=== PATIENT | female | born 1980 | race Caucasian/White ===

== ENCOUNTER 2017-06-06 19:44 | Emergency (ER) | payer BC ==
[2017-06-06] MEDS ORDERED: SODIUM CHLORIDE 0.9% 1000 ML INFUS.BAG IV ONE (19:54)
[2017-06-06 19:59] VITALS: BP 121/81; PULSE 88; TEMP 98.1; BMI 23.3
[2017-06-06 20:22] LABS: MCH 21.2 pg (25.7-33.7); MCHC 32.4 g/dl (32.0-36.0); MEAN CELL VOLUME 65.5 fl (80-96); MEAN PLT VOLUME 6.7 fl (7.5-11.1); PLATELET COUNT 271 K/MM3 (134-434); RDW 16.9 % (11.6-15.6)
[2017-06-06 20:28] LABS: WHITE BLOOD COUNT 35.8 K/mm3 (4.0-10.8)
[2017-06-06 20:36] LABS: ALBUMIN 3.6 g/dl (3.5-5.0); ALK PHOS 96 U/L (32-92); ANION GAP 8 (8-16); BILIRUBIN,TOTAL 0.8 mg/dl (0.2-1.0); CO2 28 mmol/L (22-28); CREATININE 0.6 mg/dl (0.6-1.3); GLUCOSE,RANDOM 150 mg/dl (74-106); SGOT/AST 20 U/L (10-42); SGPT/ALT 24 U/L (10-40); TOT PROT 6.4 g/dl (6.4-8.3)
[2017-06-06 21:15] LABS: ANISOCYTOSIS 1+; HYPOCHROMIA 2+; MICROCYTOSIS 1+; OVALOCYTES 1+; POLYCHROMASIA OCC; TEAR DROP CELLS 2+
--- NOTE | 2017-06-06 21:53 | PDOC ---
History of Present Illness - General History Source: Patient, It Director Used Exam Limitations: No Limitations - History of Present Illness Initial Comments: 06/06/17 21:54 The patient is a 36 year old female, with a significant past medical history antiphospholipid (on blood thinners), who presents to the emergency department with two days of vaginal bleeding. The patient reports that she is currently on IVF treatment, and is 7 weeks . She noted that yesterday she had some mild vaginal bleeding. Today she reports that the bleeding is very heavy and bright red. She states that she is passing large clots and passed 5-6 clots today. She reports that her current pain level is a 2/10 in severity. She denies chest pain, shortness of breath, headache and dizziness. She denies fever, chills, nausea, vomit, diarrhea and constipation. Allergies: None Social history: Never smoked IVF Physician: Dr. Galileo Scanlon [phone] <Bee Kimbrough - Last Filed: 06/06/17 21:57> <Meaghan Beard - Last Filed: 06/06/17 22:22> - General Chief Complaint: Vaginal Bleeding Stated Complaint: ,IVF BLEEDING Time Seen by Provider: 06/06/17 19:50 Past History <Bee Kimbrough - Last Filed: 06/06/17 21:57> - Past Medical History Other medical history: 7 WEEKS IVF - Psycho/Social/Smoking Cessation Hx Anxiety: No Suicidal Ideation: No Smoking History: Never smoked Have you smoked in the past 12 months: No Information on smoking cessation initiated: No Hx Alcohol Use: No Drug/Substance Use Hx: No Substance Use Type: None <Meaghan Beard - Last Filed: 06/06/17 22:22> - Past Medical History Allergies/Adverse Reactions: Allergies Allergy/AdvReac Type Severity Reaction Status Date / Time No Known Allergies Allergy Verified 06/06/17 19:47 Home Medications: Ambulatory Orders Enoxaparin Sodium [Lovenox] 40 mg SQ DAILY 06/06/17 Prednisone 60 mg PO DAILY 06/06/17 Review of Systems - Review of Systems Able to Perform ROS?: Yes Comments:: 06/06/17 21:54 GENERAL/CONSTITUTIONAL: No fever or chills. No weakness. HEAD, EYES, EARS, NOSE AND THROAT: No change in vision. No ear pain or discharge. No sore throat. GASTROINTESTINAL: No nausea, vomiting, diarrhea or constipation. GENITOURINARY: No dysuria, frequency, or change in urination. CARDIOVASCULAR: No chest pain or shortness of breath. RESPIRATORY: No cough, wheezing, or hemoptysis. MUSCULOSKELETAL: No joint or muscle swelling or pain. No neck or back pain. SKIN: No rash NEUROLOGIC: No headache, vertigo, loss of consciousness, or change in strength/ sensation. ENDOCRINE: No increased thirst. No abnormal weight change. PELVIC: +Vagina bleeding HEMATOLOGIC/LYMPHATIC: No anemia, easy bleeding, or history of blood clots. ALLERGIC/IMMUNOLOGIC: No hives or skin allergy. <Bee Kimbrough - Last Filed: 06/06/17 21:57> *Physical Exam - Vital Signs Last Vital Signs Temp Pulse Resp BP Pulse Ox 98.1 F 88 18 121/81 100 06/06/17 19:52 06/06/17 19:52 06/06/17 19:52 06/06/17 19:52 06/06/17 19:52 - Physical Exam Comments: 06/06/17 21:56 GENERAL: Awake, alert, and fully oriented, in no acute distress HEAD: No signs of trauma EYES: PERRLA, EOMI, sclera anicteric, conjunctiva clear ENT: Auricles normal inspection, nares patent, Moist mucosa NECK: Normal ROM, supple, no lymphadenopathy, JVD, or masses LUNGS: Breath sounds equal, clear to auscultation bilaterally. No wheezes, and no crackles HEART: Regular rate and rhythm, normal S1 and S2, no murmurs, rubs or gallops ABDOMEN: Soft, nontender, normoactive bowel sounds. No guarding, no rebound. No masses EXTREMITIES: Normal range of motion, no edema. No clubbing or cyanosis. No cords, erythema, or tenderness NEUROLOGICAL: Normal speech PELVIC: +Os is open 2mm, she has large blood clots in her vaginal vault SKIN: Warm, Dry, normal turgor, no rashes or lesions noted. <Bee Kimbrough - Last Filed: 06/06/17 21:57> - Vital Signs Last Vital Signs Temp Pulse Resp BP Pulse Ox 98.1 F 88 18 121/81 100 06/06/17 19:52 06/06/17 19:52 06/06/17 19:52 06/06/17 19:52 06/06/17 19:52 <Meaghan Beard - Last Filed: 06/06/17 22:22> ED Treatment Course - LABORATORY CBC & Chemistry Diagram: 06/06/17 20:00 06/06/17 20:00 - ADDITIONAL ORDERS Additional order review: Laboratory Results 06/06/17 06/06/17 20:00 20:00 Sodium 135 L Potassium 3.6 Chloride 99 Carbon Dioxide 28 Anion Gap 8 BUN 20 H Creatinine 0.6 Creat Clearance w eGFR > 60 Random Glucose 150 H Calcium 9.0 Total Bilirubin 0.8 AST 20 ALT 24 Alkaline Phosphatase 96 H Total Protein 6.4 Albumin 3.6 Beta HCG, Quant 8184.7 06/06/17 20:00 RBC 5.37 H MCV 65.5 L MCHC 32.4 RDW 16.9 H MPV 6.7 L Neutrophils % 77.0 Lymphocytes % 15.0 - Medications Given in the ED: ED Medications Discontinued Medications Generic Name Dose Route Start Last Admin Trade Name Freq PRN Reason Stop Dose Admin Sodium Chloride 1,000 ml 06/06/17 19:54 06/06/17 20:07 Normal Saline - IV 06/06/17 19:55 1,000 ml ONCE ONE Administration <Bee Kimbrough - Last Filed: 06/06/17 21:57> - LABORATORY CBC & Chemistry Diagram: 06/06/17 20:00 06/06/17 20:00 - ADDITIONAL ORDERS Additional order review: Laboratory Results 06/06/17 06/06/17 20:00 20:00 Sodium 135 L Potassium 3.6 Chloride 99 Carbon Dioxide 28 Anion Gap 8 BUN 20 H Creatinine 0.6 Creat Clearance w eGFR > 60 Random Glucose 150 H Calcium 9.0 Total Bilirubin 0.8 AST 20 ALT 24 Alkaline Phosphatase 96 H Total Protein 6.4 Albumin 3.6 Beta HCG, Quant 8184.7 06/06/17 20:00 RBC 5.37 H MCV 65.5 L MCHC 32.4 RDW 16.9 H MPV 6.7 L Neutrophils % 77.0 Lymphocytes % 15.0 - RADIOLOGY Radiology Studies Ordered: Category Date Time Status TRANSVAGINAL US PREG [US] Stat Ultrasound 06/06/17 20:11 Taken - Medications Given in the ED: ED Medications Discontinued Medications Generic Name Dose Route Start Last Admin Trade Name Man PRN Reason Stop Dose Admin Sodium Chloride 1,000 ml 06/06/17 19:54 06/06/17 20:07 Normal Saline - IV 06/06/17 19:55 1,000 ml ONCE ONE Administration <Meaghan Beard - Last Filed: 06/06/17 22:22> Medical Decision Making - Medical Decision Making 06/06/17 21:[address] Galileo Scanlon via answering service at [phone] <Bee Kimbrough - Last Filed: 06/06/17 21:57> - Medical Decision Making 06/06/17 21:51 36 yo F currently 7 weeks after IVF, here wtih vaginal bleeding. started yesterday, today worsening with clots. no abd pain, mild cramping. not lightheaded. on lovenox for antiphospholipid. no mod factors. was seen in office of ob yesterday told had subchorionic hemorrhage and live IUP. on exam awake alert lungs clear heart RRR no mrg. abd soft NT. pelvic with blood in vault and clots. os open 2 mm. no adnexal massess or tenderness. plan TVUS labs blood type iv hydration. ángel charissa pt ob for followup. likely ongoing misscarriage vs ectopic ( less padmaja pt had doc IUP) 06/06/17 22:18 tvus with blood in gestational sac. no pole or yolk sac as previously seen in office. paged pt ob, no call back. returning from vacation tomorrow. pt told to go home, follow up with him tomorrow. warning signs given to return to ed. WBC noted to be 35, pt recently recieved nuepogen as off label med for fertility. has followup scheduled on thursday 3 days from today. <Meaghan Beard - Last Filed: 06/06/17 22:22> *DC/Admit/Observation/Transfer - Attestations Scribe Attestion: 06/06/17 21:56 Documentation prepared by ROBERT Gunter, acting as diploma medical assistant for Meaghan Beard MD. <Bee Kimbrough - Last Filed: 06/06/17 21:57> - Discharge Dispostion Admit: No <Chandler Bearda - Last Filed: 06/06/17 22:22> Diagnosis at time of Disposition: Incomplete - Discharge Dispostion Disposition: HOME Condition at time of disposition: Improved - Patient Instructions Printed Discharge Instructions: Miscarriage Additional Instructions: drink plenty of fluids. take tylenol 500 mg every 6 hrs as needed for pain. follow up with your primary doctor, call to schedule tomorrow. return for any worsening bleeding. or any feeling of dizziness.
== END 2017-06-06 22:22 | disposition home or self-care (01) ==
LOC: FER 19:44
DX: O03.4 Incomplete spontaneous abortion without complication (principal); Z79.01 Long term (current) use of anticoagulants; Z3A.01 Less than 8 weeks gestation of pregnancy
CPT/HCPCS: 36415; 76817-TC; 80053; 84702; 85025; 86850; 86900; 86901; 99281-25